=== PATIENT | male | born 1980 | race Hispanic/Latino ===

== ENCOUNTER 2017-09-25 10:01 | Inpatient (IN) | payer MEDICAID, OTHER ==
[2017-09-25 11:08] LABS: SQUAMOUS EPITHIAL < 1 /hpf (0-5); URINE BILIRUBIN NEGATIVE (NEGATIVE); URINE BLOOD NEGATIVE (NEGATIVE); URINE CLARITY Clear (Clear); URINE COLOR Yellow (YELLOW); URINE GLUCOSE (UA) NORMAL (Normal); URINE LEUKOCYTE ESTERASE NEG Leu/uL (Negative); URINE NITRATE NEGATIVE (NEGATIVE); URINE PROTEIN NEGATIVE (NEGATIVE)
--- NOTE | 2017-09-25 11:19 | C.PDOC ---
History Of Present Illness 36 y/o male presents to the ER requesting detox from heroin. Patient states that he shoots heroin everyday and his last use was today. Patient reports that he also uses cocaine regularly and he last used cocaine yesterday. He states that he wants to change his life so he would like detox. He notes that he is feeling shaky and nauseous.Patient denies fever, chills, chest pain, and SOB. Time Seen by Provider: 09/25/17 10:34 Chief Complaint (Nursing): Substance Abuse History Per: Patient History/Exam Limitations: no limitations Onset/Duration Of Symptoms: Hrs Current Symptoms Are (Timing): Still Present Past Medical History Reviewed: Historical Data, Nursing Documentation, Vital Signs Vital Signs: Last Vital Signs Temp 98 F 09/25/17 10:04 Pulse 108 H 09/25/17 10:04 Resp 19 09/25/17 10:04 BP 122/75 09/25/17 10:04 Pulse Ox 98 09/25/17 12:14 - Medical History PMH: No Chronic Diseases Surgical History: No Surg Hx Family History: States: No Known Family Hx - Social History Hx Alcohol Use: Yes Hx Substance Use: Yes (this morning heroin/yesterday cocaine) - Immunization History Hx Tetanus Toxoid Vaccination: No Hx Influenza Vaccination: No Hx Pneumococcal Vaccination: No Review Of Systems Except As Marked, All Systems Reviewed And Found Negative. Constitutional: Negative for: Fever, Chills Cardiovascular: Negative for: Chest Pain Respiratory: Negative for: Shortness of Breath Gastrointestinal: Positive for: Nausea. Negative for: Vomiting, Diarrhea Physical Exam - Physical Exam Appears: No Acute Distress, Other (thin, frail, anxious) Skin: Normal Color, Warm Head: Atraumatic, Normacephalic Eye(s): bilateral: Normal Inspection Nose: Normal Oral Mucosa: Moist Neck: Normal, Supple Chest: Symmetrical Cardiovascular: Rhythm Regular Respiratory: Normal Breath Sounds, No Accessory Muscle Use, No Rales, No Rhonchi , No Wheezing Gastrointestinal/Abdominal: Normal Exam, Soft, No Tenderness Extremity: Left: Other (healing area of celulitis to left forearm, no warmth, no pain, patient was on Abx. ), Bilateral: Atraumatic Neurological/Psych: Oriented x3, Normal Speech, Normal Motor, Normal Sensation ED Course And Treatment - Laboratory Results Result Diagrams: 09/25/17 11:16 09/25/17 11:16 O2 Sat by Pulse Oximetry: 98 (RA) Pulse Ox Interpretation: Normal Medical Decision Making Medical Decision Making: Impression: Detox from Heroin Plan: --Labs --UA --UDS --Crisis Evaluation Disposition Counseled Patient/Family Regarding: Diagnosis - Disposition Disposition: HOME/ ROUTINE Disposition Time: 12:14 Condition: GUARDED - POA Present On Arrival: None - Clinical Impression Clinical Impression: Drug dependence - Scribe Statement The provider has reviewed the documentation as recorded by the Matilde Plummer Provider Attestation: All medical record entries made by the Reinaibe were at my direction and personally dictated by me. I have reviewed the chart and agree that the record accurately reflects my personal performance of the history, physical exam, medical decision making, and the department course for this patient. I have also personally directed, reviewed, and agree with the discharge instructions and disposition. Decision To Admit - Pt Status Changed To: Hospital Disposition Of: Inpatient - Admit Certification Admit to Inpatient:: After my assessment, the patient will require hospitalization for at least two midnights. This is because of the severity of symptoms shown, intensity of services needed, and/or the medical risk in this patient being treated as an outpatient. - InPatient: Physician Admission Certification: I certify that this patient requires 2 or more midnights of care for the following reason:: needs inpatient detox - . Bed Request Type: Detox Patient Diagnosis: Drug dependence
[2017-09-25 11:20] LABS: BASO # 0.1 K/uL (0.0-0.2); BASO % 0.8 % (0.0-2.0); EOS % 0.2 % (0.0-4.0); HEMOGLOBIN 13.6 g/dL (12.0-18.0); LYMPH # 1.8 K/uL (1.0-4.3); LYMPH % 13.2 % (20.0-40.0); MEAN CELL VOLUME 86.4 fL (80.0-94.0); MEAN CORPUSCULAR HEMOGLOBIN 29.6 pg (27.0-31.0); MEAN CORPUSCULAR HGB CONC 34.3 g/dL (33.0-37.0); MEAN PLATELET VOLUME 7.6 fL (7.2-11.7); MONO # 0.6 K/uL (0.0-0.8); NEUT # 11.5 K/uL (1.8-7.0); NEUT % 81.8 % (50.0-75.0); RBC 4.58 Mil/uL (4.40-5.90); RED CELL DISTRIBUTION WIDTH 13.5 % (11.5-14.5)
[2017-09-25 11:33] LABS: ALBUMIN 4.2 g/dL (3.5-5.0); ALT/SGPT 25 U/L (21-72); AST/SGOT 20 U/L (17-59); BLOOD UREA NITROGEN 8 mg/dL (9-20); CALCIUM 9.2 mg/dl (8.6-10.4); GFR AFRICAN-AMERICAN > 60; GFR NON-AFRICAN AMERICAN > 60
[2017-09-25 11:52] LABS: BARBITURATES, UR NEGATIVE (NEGATIVE); BENZODIAZEPINES, UR NEGATIVE (NEGATIVE); PHENCYCLIDINE, UR NEGATIVE (NEGATIVE)
[2017-09-25 11:58] LABS: OPIATES, UR POSITIVE (NEGATIVE)
--- NOTE | 2017-09-25 12:52 | PCM.BM ---
<Meg Plunkett - Last Filed: 09/25/17 12:51> Treatment Plan Problems - Problems identified on initial assessmt potential for opiate withdrawals Date Initiated: 09/25/17 Assessment reference: NA Status: Active Treatment assets and liabiliti Patient Assests: adapts well, cooperative, motivated, ADL independent, negotiates basic needs Patient Liabilities: substance abuse - Milieu Protocol Maintain good personal hygiene: daily Encourage regular showers, daily Remind patient to perform daily oral care, daily Assist patient to perform ADL's Conduct patient checks and document Observation sheet: Q15 minutes Maintain personal safety: every shift Educate patient to report safety concerns to staff, every shift Monitor environment for contraband/sharps Medication safety: Monitor for expected outcome, potential side effects: every shift, Assess barriers to learning: every shift, Assess readiness for medication education: every shift <Danny Edwards - Last Filed: 09/25/17 17:53> - Diagnosis (1) Opioid use disorder, severe, dependence Status: Acute Interventions: 09/25/17 17:54 * Assess 7x/week regarding severity of withdrawal * Educate regarding risks, benefits, side effects and alternatives of medications * Use Motivational Interviewing for abstinence * Use CBT for relapse prevention * Medication management for withdrawal symptoms * Encourage medication assisted treatment * <Alexia Wheeler - Last Filed: 09/26/17 08:26> Family Contact Family involvement: Patient does not wish Family/SO involvement - Goals for Treatment Patient goals for treatment: Complete detox and transition to IOP. Discharge/Continuing Care - Education Needs Education Needs: Patient Medication, Patient Diagnosis/Disease Process, Patient Coping Skills, Patient Anger Management skills, Patient Placement options, Patient Community resources - Discharge Discharge Criteria: No longer exhibiting s/s of withdrawal, Reduction of target symptoms Discharge to:: Home, With Family - Treatment Team Participation Patient/Family/SO Statement: 09/26/17 08:25 "I wanna go to IOP after detox." Discussed with Family/SO: No Was Patient/Family/SO present at Treatment Team Meeting: Yes
[2017-09-25] MEDS ORDERED: Aluminum Hydroxide/Magnesium Hydroxide Susp (30 mL) PO PRN (12:53)
--- NOTE | 2017-09-25 13:00 | PCM.PSYCH ---
Initial Psychiatric Evaluation - Initial Psychiatric Evaluation Type of Admission: Voluntary Legal Status: Capacity Chief Complaint (in patient's own words): "I'm here for detox" History of Present Illness and Precipitating Events: 36 yo M, single, no children, recently unemployed, currently living with simran who presents to us today for detox for heroin. He has been using anywhere from 20-60 bags/day IV. Last used yesterday. Patient states that he was clean for 3.5 years and relapsed 1 year ago. He began using opioids such as perococet when he was 16. He got clean before with a sponsor and continued AA group meetings. He met his fiance at a meeting one day. She currently works in finance and has suffered from alcoholism in the past. She continues to remain clean today. Additionally, patient admits to frequent cocaine IV and marijuana multiple times a week and cigarettes 2ppd. Denies any use of PCP, xanax, adderall or other recreational drugs. He does not have any solidified plans after discharge yet. Detox Hx: Never before Rehab Hx: Never before, only AA meetings Medical Hx: Denies Medications: Denies Psych Hx: Denies Fam Hx: History of substance abuse in multiple family members including father ( alcohol), grandfather (alcohol), uncle (alcohol), uncle (crack) Trauma/abuse: denies Legal issues: denies Current Medications: Active Medications Generic Name Dose Route Start Last Admin Trade Name Freq PRN Reason Stop Dose Admin Al Hydrox/Mg Hydrox/Simethicone 30 ml 09/25/17 12:53 Maalox 30 Ml PO Q6H PRN Indigestion / Heartburn Clonidine HCl 0.1 mg 09/25/17 12:53 Catapres PO Q8 PRN COWS Score More or Equal to 5 Hydroxyzine HCl 50 mg 09/25/17 12:59 Atarax PO Q6H PRN Anxiety Ibuprofen 600 mg 09/25/17 12:54 Motrin Tab PO Q6H PRN Pain, moderate (4-7) Loperamide HCl 2 mg 09/25/17 12:53 Imodium PO Q8 PRN Diarrhea Methadone HCl 20 mg 09/25/17 13:00 Methadone PO 09/25/17 13:01 ONCE ONE Ondansetron HCl 4 mg 09/25/17 12:53 Zofran Tab PO Q8 PRN Nausea/Vomiting Trazodone HCl 100 mg 09/25/17 12:59 Desyrel PO HS PRN Insomnia Past Psychiatric History - Past Psychiatric History History of Abuse: denies History of ETOH/Drug Use: (+) heroin, cocaine, MJ, percocet, opioids, tobacco History of Family Illness: (+) Multiple family members have suffered from substance abuse Pertinent Medical Hx (Current Medical&Sleep Prob, Allergies): Allergies Allergy/AdvReac Type Severity Reaction Status Date / Time No Known Allergies Allergy Verified 09/25/17 10:06 No Known Home Med 09/25/17 Review of Systems - Constitutional Constitutional: absent: Fever, Chills, Sweats - Gastrointestinal Gastrointestinal: absent: Nausea, Vomiting - Musculoskeletal Musculoskeletal: absent: Myalgias - Neurological Neurological: absent: Tremor Additional comments: (+) jitters - Psychiatric Psychiatric: absent: Depression, Hallucinations, Mood Swings, Suicidal Ideation Mental Status Examination - Personal Presentation Personal Presentation: Looks stated age - Affect Affect: Broad - Motor Activity Motor Activity: Calm - Reliability in Providing Information Reliability in Providing Information: Good - Speech Speech: Organized - Mood Mood: Neutral - Formal Thought Process Formal Thought Process: No Impairment - Obsessions/Compulsions Obsessions: No Compulsions: No - Cognitive Functions Orientation: Person, Place, Situation, Time Sensorium: Alert Attention/Concentration: Attentive Abstract Thinking: [place] Estimate of Intelligence: Above Average Judgement: Imparied, as evidence by: Lack of insight into illness Memory: Recent intact, as evidence by: Ability to recall events of the day, Remote intact, as evidenced by: Abilit to recall sig. life events - Risk Risk: Seizure, Withdrawal, Diminished functioning - Strength & Assets Inventory Strength & Assets Inventory: Intelligence, Family support, Employment history, Skills, Spiritual affiliations, Life experience, Cooperative DSM 5 DX - DSM 5 DSM 5 Diagnosis: Opioid Withdrawal Opioid Use d/o - severe - Recommended/Plan of Treatment Treatment Recommendations and Plan of Treatment: Methadone detox Gabapentin for augmentation if needed Med consult for abscess As needed medications All risks, benefits and alternatives of the meds discussed, and the pt agreed and understood. Attend groups and activities Supportive therapy and psychoeducation AR for abstinence CBT for relapse prevention Encourage MAT Refer to rehab or IOP, and self-help groups Smoking cessation with AR Nicotine patch 34 min Projected ELOS: 4-5 days Prognosis: good with treatment Discharge Plan and Discharge Criteria: Rehab and MAT - Smoking Cessation Smoking Cessation Initiated: Yes
--- NOTE | 2017-09-25 15:31 | CP.PCM.CON ---
<Gustavo Washington - Last Filed: 09/25/17 20:43> History of Present Illness - History of Present Illness History of Present Illness: PGY1 Medicine Consult Note for Dr. Esquivel Reason for Consult: Abscess Patient is a 36 year old male with a past medical history of substance abuse ( cocaine & heroin) presenting to the hospital for detox from heroin. He states that he uses cocaine and heroin regularly. The last time he used cocaine was 2 days ago and heroin was yesterday. He states that he used to cocaine regularly for years but was sober for 3 and a half years. About 2 years he decided to give heroin a try and has been using ever since. He states that he did not want to live anymore and attempted to overdose. He reports that he will re-use his own needles but does not share. He states that he has an abscess located on the posterior portion of his left forearm. He noticed it over one week ago after missing the vein when he attempted to shoot cocaine. He sought out medical treatment a week ago. He was given a prescription for the antibiotics but never filled it. The abscess has been draining on its own. It is not causing him any pain. He reports this is the third abscess he has gotten and it occurs every time that he misses his vein when attempting to shoot up cocaine. Patient reports that he does not want to live the drug life anymore. He came to detox because he wants to get his life back under control and kick the drugs for good. Patient states he is having withdrawal symptoms of chills, shakes, nausea but no vomiting. He denies chest pain, abdominal pain, numbness, tingling, constipation or diarrhea. PMH: substance abuse PSH: denies Family hx: denies Social hx: current smoker (20 pack year hx), denies alcohol, IV cocaine and heroin everyday ("As much as I can get my hands on. Allergies: NKDA Past Patient History - Infectious Disease Hx of Infectious Diseases: None - Past Social History Smoking Status: Heavy Smoker > 10 Cigarettes Daily - CARDIAC Hx Cardiac Disorders: No Hx Hypertension: No - PULMONARY Hx Tuberculosis: No - NEUROLOGICAL HX Cerebrovascular Accident: No Hx Seizures: No - HEMATOLOGICAL/ONCOLOGICAL Hx Cancer: No Hx Human Immunodeficiency Virus (HIV): No - MUSCULOSKELETAL/RHEUMATOLOGICAL Hx Falls: No - GENITOURINARY/GYNECOLOGICAL Hx Sexually Transmitted Disorders: No - PSYCHIATRIC Hx Substance Use: Yes - SURGICAL HISTORY Hx Surgeries: No - ANESTHESIA Hx Anesthesia: No Meds Allergies/Adverse Reactions: Allergies Allergy/AdvReac Type Severity Reaction Status Date / Time No Known Allergies Allergy Verified 09/25/17 10:06 - Medications Medications: Current Medications Al Hydrox/Mg Hydrox/Simethicone (Maalox 30 Ml) 30 ml PO Q6H PRN PRN Reason: Indigestion / Heartburn Clonidine HCl (Catapres) 0.1 mg PO Q8 PRN PRN Reason: COWS Score More or Equal to 5 Hydroxyzine HCl (Atarax) 50 mg PO Q6H PRN PRN Reason: Anxiety Last Admin: 09/25/17 14:23 Dose: 50 mg Ibuprofen (Motrin Tab) 600 mg PO Q6H PRN PRN Reason: Pain, moderate (4-7) Loperamide HCl (Imodium) 2 mg PO Q8 PRN PRN Reason: Diarrhea Nicotine (Nicoderm Cq) 1 patch TD DAILY LESLEY Last Admin: 09/25/17 13:54 Dose: 1 patch Ondansetron HCl (Zofran Tab) 4 mg PO Q8 PRN PRN Reason: Nausea/Vomiting Trazodone HCl (Desyrel) 100 mg PO HS PRN PRN Reason: Insomnia Physical Exam - Constitutional Appears: Non-toxic, No Acute Distress - Head Exam Head Exam: ATRAUMATIC, NORMOCEPHALIC - Eye Exam Eye Exam: Normal appearance - ENT Exam ENT Exam: Mucous Membranes Moist - Extremities Exam Additional comments: left forearm - healing abscess, 3cm x 1cm area of induration. no area of fluctuatance noted. no draining. right hand - healing abscess - Neurological Exam Neurological exam: Alert, Oriented x3 - Psychiatric Exam Psychiatric exam: Normal Affect, Normal Mood - Skin Additional comments: left forearm - healing abscess, 3cm x 1cm area of induration. no area of fluctuatance noted. no draining. right hand - healing abscess Results - Vital Signs Recent Vital Signs: Last Vital Signs Temp 98.0 F 09/25/17 13:01 Pulse 90 09/25/17 13:01 Resp 20 09/25/17 13:01 BP 106/72 09/25/17 13:01 Pulse Ox 98 09/25/17 13:01 - Labs Result Diagrams: 09/25/17 11:16 09/25/17 11:16 Labs: Laboratory Results - last 24 hr 09/25/17 09/25/17 09/25/17 10:54 10:54 11:16 WBC 14.0 H RBC 4.58 Hgb 13.6 Hct 39.6 MCV 86.4 MCH 29.6 MCHC 34.3 RDW 13.5 Plt Count 356 MPV 7.6 Neut % (Auto) 81.8 H Lymph % (Auto) 13.2 L [place] % (Auto) 4.0 Eos % (Auto) 0.2 Baso % (Auto) 0.8 Neut # (Auto) 11.5 H Lymph # (Auto) 1.8 [place] # (Auto) 0.6 Eos # (Auto) 0.0 Baso # (Auto) 0.1 Sodium Potassium Chloride Carbon Dioxide Anion Gap BUN Creatinine Est GFR ( Amer) Est GFR (Non-Af Amer) Random Glucose Calcium Total Bilirubin AST ALT Alkaline Phosphatase Total Protein Albumin Globulin Albumin/Globulin Ratio Urine Color Yellow Urine Clarity Clear Urine pH 7.0 Ur Specific [place] 1.021 Urine Protein Negative Urine Glucose (UA) Normal Urine Ketones Negative Urine Blood Negative Urine Nitrate Negative Urine Bilirubin Negative Urine Urobilinogen 2.0 Ur Leukocyte Esterase Neg Urine WBC (Auto) 1 Urine RBC (Auto) < 1 Ur Squamous Epith Cells < 1 Urine Opiates Screen Positive H Urine Methadone Screen Negative Ur Barbiturates Screen Negative Ur Phencyclidine Scrn Negative Ur Amphetamines Screen Negative U Benzodiazepines Scrn Negative U Oth Cocaine Metabols Positive H U Cannabinoids Screen Positive H Alcohol, Quantitative 09/25/17 11:16 WBC RBC Hgb Hct MCV MCH MCHC RDW Plt Count MPV Neut % (Auto) Lymph % (Auto) [place] % (Auto) Eos % (Auto) Baso % (Auto) Neut # (Auto) Lymph # (Auto) [place] # (Auto) Eos # (Auto) Baso # (Auto) Sodium 139 Potassium 4.1 Chloride 102 Carbon Dioxide 28 Anion Gap 13 BUN 8 L Creatinine 0.7 L Est GFR ( Amer) > 60 Est GFR (Non-Af Amer) > 60 Random Glucose 94 Calcium 9.2 Total Bilirubin 1.1 AST 20 ALT 25 Alkaline Phosphatase 77 Total Protein 8.5 H Albumin 4.2 Globulin 4.3 H Albumin/Globulin Ratio 1.0 Urine Color Urine Clarity Urine pH Ur Specific [place] Urine Protein Urine Glucose (UA) Urine Ketones Urine Blood Urine Nitrate Urine Bilirubin Urine Urobilinogen Ur Leukocyte Esterase Urine WBC (Auto) Urine RBC (Auto) Ur Squamous Epith Cells Urine Opiates Screen Urine Methadone Screen Ur Barbiturates Screen Ur Phencyclidine Scrn Ur Amphetamines Screen U Benzodiazepines Scrn U Oth Cocaine Metabols U Cannabinoids Screen Alcohol, Quantitative < 10 Assessment & Plan - Assessment and Plan (Free Text) Plan: Left forearm abscess * US of left UE - f/u * Clinda 300mg PO TID (started 09/25/17) * Lactobacillus 1 cap daily * continue to monitor Detox from Cocaine and Heroin All other medical management per primary team Case discussed with Dr. Alvin Chen Felix PGY1 <Jenny Esquivel V - Last Filed: 09/26/17 06:45> Meds - Medications Medications: Current Medications Al Hydrox/Mg Hydrox/Simethicone (Maalox 30 Ml) 30 ml PO Q6H PRN PRN Reason: Indigestion / Heartburn Clindamycin HCl (Cleocin) 300 mg PO TID LESLEY Clonidine HCl (Catapres) 0.1 mg PO Q8 PRN PRN Reason: COWS Score More or Equal to 5 Hydroxyzine HCl (Atarax) 50 mg PO Q6H PRN PRN Reason: Anxiety Last Admin: 09/25/17 21:22 Dose: 50 mg Ibuprofen (Motrin Tab) 600 mg PO Q6H PRN PRN Reason: Pain, moderate (4-7) Lactobacillus Acidophilus (Bacid Acidophilus) 1 cap PO DAILY LESLEY Loperamide HCl (Imodium) 2 mg PO Q8 PRN PRN Reason: Diarrhea Nicotine (Nicoderm Cq) 1 patch TD DAILY LESLEY Last Admin: 09/25/17 13:54 Dose: 1 patch Ondansetron HCl (Zofran Tab) 4 mg PO Q8 PRN PRN Reason: Nausea/Vomiting Trazodone HCl (Desyrel) 100 mg PO HS PRN PRN Reason: Insomnia Last Admin: 09/25/17 21:22 Dose: 100 mg Results - Vital Signs Recent Vital Signs: Last Vital Signs Temp 97.8 F 09/26/17 06:17 Pulse 82 09/26/17 06:17 Resp 18 09/26/17 06:17 BP 94/65 L 09/26/17 06:17 Pulse Ox 98 09/26/17 06:17 - Labs Result Diagrams: 09/25/17 11:16 09/25/17 11:16 Labs: Laboratory Results - last 24 hr 09/25/17 09/25/17 09/25/17 10:54 10:54 11:16 WBC 14.0 H RBC 4.58 Hgb 13.6 Hct 39.6 MCV 86.4 MCH 29.6 MCHC 34.3 RDW 13.5 Plt Count 356 MPV 7.6 Neut % (Auto) 81.8 H Lymph % (Auto) 13.2 L [place] % (Auto) 4.0 Eos % (Auto) 0.2 Baso % (Auto) 0.8 Neut # (Auto) 11.5 H Lymph # (Auto) 1.8 [place] # (Auto) 0.6 Eos # (Auto) 0.0 Baso # (Auto) 0.1 Sodium Potassium Chloride Carbon Dioxide Anion Gap BUN Creatinine Est GFR ( Amer) Est GFR (Non-Af Amer) Random Glucose Calcium Total Bilirubin AST ALT Alkaline Phosphatase Total Protein Albumin Globulin Albumin/Globulin Ratio Urine Color Yellow Urine Clarity Clear Urine pH 7.0 Ur Specific [place] 1.021 Urine Protein Negative Urine Glucose (UA) Normal Urine Ketones Negative Urine Blood Negative Urine Nitrate Negative Urine Bilirubin Negative Urine Urobilinogen 2.0 Ur Leukocyte Esterase Neg Urine WBC (Auto) 1 Urine RBC (Auto) < 1 Ur Squamous Epith Cells < 1 Urine Opiates Screen Positive H Urine Methadone Screen Negative Ur Barbiturates Screen Negative Ur Phencyclidine Scrn Negative Ur Amphetamines Screen Negative U Benzodiazepines Scrn Negative U Oth Cocaine Metabols Positive H U Cannabinoids Screen Positive H Alcohol, Quantitative 09/25/17 11:16 WBC RBC Hgb Hct MCV MCH MCHC RDW Plt Count MPV Neut % (Auto) Lymph % (Auto) [place] % (Auto) Eos % (Auto) Baso % (Auto) Neut # (Auto) Lymph # (Auto) [place] # (Auto) Eos # (Auto) Baso # (Auto) Sodium 139 Potassium 4.1 Chloride 102 Carbon Dioxide 28 Anion Gap 13 BUN 8 L Creatinine 0.7 L Est GFR ( Amer) > 60 Est GFR (Non-Af Amer) > 60 Random Glucose 94 Calcium 9.2 Total Bilirubin 1.1 AST 20 ALT 25 Alkaline Phosphatase 77 Total Protein 8.5 H Albumin 4.2 Globulin 4.3 H Albumin/Globulin Ratio 1.0 Urine Color Urine Clarity Urine pH Ur Specific [place] Urine Protein Urine Glucose (UA) Urine Ketones Urine Blood Urine Nitrate Urine Bilirubin Urine Urobilinogen Ur Leukocyte Esterase Urine WBC (Auto) Urine RBC (Auto) Ur Squamous Epith Cells Urine Opiates Screen Urine Methadone Screen Ur Barbiturates Screen Ur Phencyclidine Scrn Ur Amphetamines Screen U Benzodiazepines Scrn U Oth Cocaine Metabols U Cannabinoids Screen Alcohol, Quantitative < 10 Attending/Attestation - Attestation I have personally seen and examined this patient.: Yes I have fully participated in the care of the patient.: Yes I have reviewed all pertinent clinical information: Yes Notes (Text): This is a late computer entry for 09/25/17. Patient seen, examined and case discussed with day-time resident. Medicine consult requested by detox for forearm abscess. Patient is a polysubstance abuser including cocaine, heroin, and weed and history of prior abscesses which are evident on physical exam. Patient admits to his heroin use as noted, uses his own needles denies sharing, reports he received prescription from prior ER visit but it is unclear if he used it or not. Patient reports abscess on his forearm started draining and he manipulate the area to express more pus. On exam, the area appears erythematous, surrounding feels fullness unclear if this is indurated or fluctuance. We will start Clindamycin to cover for anaerobe and MRSA and get an nonextremity US to see if needs further drainage or not. Patient reports he has been tested for Hepatitis and HIV recently and denies. We will order blood work for the AM and give a probiotic.
[2017-09-26 06:18] VITALS: RESP 18
[2017-09-26] MEDS: Lactobacillus Acidophilus 500 MU Cap PO SCH (09:20)
[2017-09-26] MEDS ORDERED: Lactobacillus Acidophilus 500 MU Cap PO SCH (10:00)
--- NOTE | 2017-09-26 10:44 | CP.PCM.PN ---
<Gustavo Washington - Last Filed: 09/26/17 15:13> Subjective - Date & Time of Evaluation Date of Evaluation: 09/26/17 Time of Evaluation: 10:41 - Subjective Subjective: PGY1 Medicine Note for Dr. Esquivel, Patient seen and examine this morning. Patient refused US of left forearm abscess twice. "This thing is fine. I am not going for an ultrasound." Patient also stated he will refuse any blood work. He states that the abscess is healing and he does not want to be seen by anyone for the abscess anymore. He states he just wants to stay, do his detox and go home. Patient has no complaints at this time. Objective - Vital Signs/Intake and Output Vital Signs (last 24 hours): Temp Pulse Resp BP Pulse Ox 97.8 F 82 18 94/65 L 98 09/26/17 06:17 09/26/17 06:17 09/26/17 06:17 09/26/17 06:17 09/26/17 06:17 - Medications Medications: Current Medications Al Hydrox/Mg Hydrox/Simethicone (Maalox 30 Ml) 30 ml PO Q6H PRN PRN Reason: Indigestion / Heartburn Clindamycin HCl (Cleocin) 300 mg PO TID [facility] Last Admin: 09/26/17 09:20 Dose: 300 mg Clonidine HCl (Catapres) 0.1 mg PO Q8 PRN PRN Reason: COWS Score More or Equal to 5 Last Admin: 09/26/17 08:27 Dose: 0.1 mg Hydroxyzine HCl (Atarax) 50 mg PO Q6H PRN PRN Reason: Anxiety Last Admin: 09/25/17 21:22 Dose: 50 mg Ibuprofen (Motrin Tab) 600 mg PO Q6H PRN PRN Reason: Pain, moderate (4-7) Lactobacillus Acidophilus (Bacid Acidophilus) 1 cap PO DAILY [facility] Last Admin: 09/26/17 09:20 Dose: 1 cap Loperamide HCl (Imodium) 2 mg PO Q8 PRN PRN Reason: Diarrhea Methadone HCl (Methadone) 20 mg PO Q24H [facility] PRN Reason: Taper Stop: 09/30/17 09:59 Last Admin: 09/26/17 09:22 Dose: 20 mg Nicotine (Nicoderm Cq) 1 patch TD DAILY [facility] Last Admin: 09/26/17 09:20 Dose: 1 patch Ondansetron HCl (Zofran Tab) 4 mg PO Q8 PRN PRN Reason: Nausea/Vomiting Trazodone HCl (Desyrel) 100 mg PO HS PRN PRN Reason: Insomnia Last Admin: 09/25/17 21:22 Dose: 100 mg - Labs Labs: 09/25/17 11:16 09/25/17 11:16 - Constitutional Appears: Non-toxic, No Acute Distress - Head Exam Head Exam: ATRAUMATIC, NORMOCEPHALIC - Eye Exam Eye Exam: Normal appearance - ENT Exam ENT Exam: Mucous Membranes Moist - Respiratory Exam Respiratory Exam: NORMAL BREATHING PATTERN. absent: Accessory Muscle Use, Respiratory Distress - Extremities Exam Additional comments: left forearm - healing abscess, 3cm x 1cm area of induration. no area of fluctuatance noted. no draining. - erythema improving. right hand - healing abscess - Neurological Exam Neurological Exam: Alert, Awake, Oriented x3 - Psychiatric Exam Psychiatric exam: Normal Affect, Normal Mood - Skin Skin Exam: Dry, Warm Assessment and Plan - Assessment and Plan (Free Text) Plan: Left forearm abscess * US of left UE - patient refused twice * Clinda 300mg PO TID (started 09/25/17) - continue for a total of 10 days (last day on 10/04/17). * Lactobacillus 1 cap daily * Patient had elevated WBC of 14.0 yesterday, but stated he will refuse all follow up bloodwork. 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 He is unsure if he will take the antibiotics because the abscess is improving. He was encouraged to complete the 10 day course of medication. Medicine signing off. Please re-consult if needed. Case discussed with Dr. Alvin Chen Felix PGY1 <Jenny Esquivel V - Last Filed: 09/26/17 22:28> Objective - Vital Signs/Intake and Output Vital Signs (last 24 hours): Temp Pulse Resp BP Pulse Ox 98.3 F 78 18 101/65 98 09/26/17 21:29 09/26/17 21:29 09/26/17 21:29 09/26/17 21:29 09/26/17 21:29 - Medications Medications: Current Medications Al Hydrox/Mg Hydrox/Simethicone (Maalox 30 Ml) 30 ml PO Q6H PRN PRN Reason: Indigestion / Heartburn Clindamycin HCl (Cleocin) 300 mg PO TID [facility] Last Admin: 09/26/17 17:34 Dose: 300 mg Clonidine HCl (Catapres) 0.1 mg PO Q8 PRN PRN Reason: COWS Score More or Equal to 5 Last Admin: 09/26/17 17:33 Dose: 0.1 mg Hydroxyzine HCl (Atarax) 50 mg PO Q6H PRN PRN Reason: Anxiety Last Admin: 09/26/17 21:07 Dose: 50 mg Ibuprofen (Motrin Tab) 600 mg PO Q6H PRN PRN Reason: Pain, moderate (4-7) Lactobacillus Acidophilus (Bacid Acidophilus) 1 cap PO DAILY [facility] Last Admin: 09/26/17 09:20 Dose: 1 cap Loperamide HCl (Imodium) 2 mg PO Q8 PRN PRN Reason: Diarrhea Methadone HCl (Methadone) 20 mg PO Q24H [facility] PRN Reason: Taper Stop: 09/30/17 09:59 Last Admin: 09/26/17 09:22 Dose: 20 mg Nicotine (Nicoderm Cq) 1 patch TD DAILY [facility] Last Admin: 09/26/17 09:20 Dose: 1 patch Ondansetron HCl (Zofran Tab) 4 mg PO Q8 PRN PRN Reason: Nausea/Vomiting Trazodone HCl (Desyrel) 100 mg PO HS PRN PRN Reason: Insomnia Last Admin: 09/26/17 21:07 Dose: 100 mg - Labs Labs: 09/25/17 11:16 09/25/17 11:16 Attending/Attestation - Attestation I have personally seen and examined this patient.: Yes I have fully participated in the care of the patient.: Yes I have reviewed all pertinent clinical information, including history, physical exam and plan: Yes Notes (Text): Patient seen, examined and case discussed with medical claims assistant. Patient seen during rounds. patient appears better than yesterday. Patient is refusing blood work, ultrasound, and does not want general surgery to come by evaluate the abscess. Patient reports he can handle the abscess himself. Patient recommended for prescription 10 day course Cindamycin 300mg PO TID total to cover. Medicine to sign off since patient does not adhere to any of recommendations. Please reconsult if needed. Thank you. Assessment/Plan 1) Left forearm abscess * US of left UE - patient refused twice * Clinda 300mg PO TID (started 09/25/17) - continue for a total of 10 days (last day on 10/04/17). * Lactobacillus 1 cap daily * Patient had elevated WBC of 14.0 yesterday, but stated he will refuse all follow up bloodwork. 2) Detox from Cocaine and Heroin * management per psychiatry team
--- NOTE | 2017-09-26 12:31 | PCM.PYCHPN ---
Psychiatric Progress Note - Psychiatric Progress Note Patient seen today, length of contact: 15 min Patient Chief Complaint: "I'm okay" Problems Identified/Issues Discussed: The pt is seen, chart reviewed, case discussed with staff. Patient was seen early in the morning, he stated that he was feeling very agitated, irritable, reported (+) rhinorrhea, congestion and anxiety. Following administration of his detox medication, patient reports feeling much better. Denies persistence of these symptoms. The pt is compliant with medications and reports no side- effects. Symptoms are improving and patient needs more time to stabilize. After care discussed, support and psychoeducation given. During the discussion, patient states that he would like to return back home and just continue with his AA sponsor. It was explained to him, that he would best benefit from more intensive outpatient therapy such as rehab or replacement. He is open to further discussing this options later. No other complaints are noted. Medication Change: Yes (detox changes daily) Medical Record Reviewed: Yes Mental Status Examination - Cognitive Function Orientation: Person, Place, Situation, Time Memory: Intact Attention: WNL Concentration: WNL Association: WN Fund of Knowledge: WNL - Mood Mood: Neutral - Affect Affect: Broad - Speech Speech: Appropriate - Formal Thought Process Formal Thought Process: No Impairment - Suicidal Ideation Suicidal Ideation: No - Homicidal Ideation Homicidal Ideation: No Goal/Treatment Plan - Goal/Treatment Plan Need for Continued Stay: Remain at risks for inpatient hospitalization, Discharge may exacerbated symptoms, Severe functional impairment Progress Toward Problem(s) and Goals/Treatment Plan: Methadone detox Gabapentin for augmentation if needed Med consult for abscess As needed medications All risks, benefits and alternatives of the meds discussed, and the pt agreed and understood. Attend groups and activities Supportive therapy and psychoeducation [place] for abstinence CBT for relapse prevention Encourage MAT Refer to rehab or IOP, and self-help groups Smoking cessation with [place] Nicotine patch Estimated Date of D/C: 09/30/17 - Smoking Cessation Smoking Cessation Initiated: Yes
[2017-09-27 06:11] VITALS: O2SAT 99
--- NOTE | 2017-09-27 08:17 | PCM.PYCHPN ---
Psychiatric Progress Note - Psychiatric Progress Note Patient seen today, length of contact: 15 min Medication Change: Yes (detox changes daily) Medical Record Reviewed: Yes Mental Status Examination - Cognitive Function Orientation: Person, Place, Situation, Time Memory: Intact Attention: WNL Concentration: WNL Association: WNL Fund of Knowledge: WNL - Mood Mood: Neutral - Affect Affect: Broad - Speech Speech: Appropriate - Formal Thought Process Formal Thought Process: No Impairment - Suicidal Ideation Suicidal Ideation: No - Homicidal Ideation Homicidal Ideation: No Goal/Treatment Plan - Goal/Treatment Plan Need for Continued Stay: Remain at risks for inpatient hospitalization, Discharge may exacerbated symptoms, Severe functional impairment Estimated Date of D/C: 09/30/17
[2017-09-27] MEDS: Lactobacillus Acidophilus 500 MU Cap PO SCH (09:05)
[2017-09-27 09:47] VITALS: BP 110/75; PULSE 93; TEMP 98
--- NOTE | 2017-09-28 17:24 | PCM.PYCHDC ---
Mental Status Examination - Mental Status Examination Orientation: Person, Place, Situation, Time Memory: Intact Mood: Neutral Affect: Constricted Speech: Soft Attention: WNL Concentration: WNL Association: WNL Fund of Knowledge: WNL Formal Thought Process: No Impairment Suicidal Ideation: No Current Homicidal Ideation?: No Discharge Summary - Discharge Note Consultations:: List each consultation separately and include: 1. Reason for request. 2. Findings. 3. Follow-up Summary of Hospital Course include:: 1. Description of specific treatment plan utilized for patients during their course of treatmen. 2. Summarize the time- course for resolution of acute symptoms and/or regressed behaviors. 3. Describe issues identified and worked on during hospitalization. 4. Describe medication utilized. 5. Describe medical problems identified and treated. 6. Reassessment of suicide risk - Final Diagnosis (DSM 5) Condition upon Discharge: GUARDED Disposition: HOME/ ROUTINE
== END 2017-09-27 09:25 | disposition home or self-care (01) | DRG 895 ==
LOC: C.ER 10:01 → C.7D 12:15
PROVIDERS: ADMIT Psychiatry & Neurology Psychiatry; ATTEND Psychiatry & Neurology Psychiatry
PROC: HZ2ZZZZ Detoxification Services for Substance Abuse Treatment (ICD-10-PCS; principal; 2017-09-25)
PROC: HZ56ZZZ Individual Psychotherapy for Substance Abuse Treatment, Psychoeducation (ICD-10-PCS; 2017-09-25)
PROC: HZ46ZZZ Group Counseling for Substance Abuse Treatment, Psychoeducation (ICD-10-PCS; 2017-09-25)
PROC: HZ90ZZZ Pharmacotherapy for Substance Abuse Treatment, Nicotine Replacement (ICD-10-PCS; 2017-09-25)
DX: F11.23 Opioid dependence with withdrawal (principal); D72.829 Elevated white blood cell count, unspecified; F14.90 Cocaine use, unspecified, uncomplicated; F17.210 Nicotine dependence, cigarettes, uncomplicated; F41.9 Anxiety disorder, unspecified